=== PATIENT | male | born 2005 | race Caucasian/White ===

== ENCOUNTER 2025-07-29 17:09 | Inpatient (IN) | payer OTHER, SELFPAY ==
[2025-07-29 18:18] VITALS: BMI 31.9
[2025-07-29 18:19] VITALS: BP 136/80; PULSE 88; RESP 14; TEMP 37.1; O2SAT 98
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
[2025-07-29 20:00] VITALS: BP 138/79; PULSE 88; RESP 16; TEMP 36.5; O2SAT 98
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
[2025-07-30 08:00] VITALS: BP 136/93; PULSE 78; RESP 20; TEMP 36.3; O2SAT 99
[2025-07-30 08:37] LABS: Alanine Aminotransferase 26 U/L (0-40); Albumin Level 4.7 g/dL (3.5-5.0); Alkaline Phosphatase 107 U/L (39-117); Anion Gap 12 (12-20); Aspartate Amino Transferase 22 U/L (5-37); Blood Urea Nitrogen 22 mg/dL (9-16); Calcium 9.6 mg/dL (8.4-10.2); Carbon Dioxide 26 mmol/L (22-29); Chloride 105 mmol/L (96-108); Cholesterol 154 mg/dL (<200); Creatinine Clr Calc Pharmacy 146.1; Estimated Glomerular Filt Rate > 60; HDL Cholesterol 43 mg/dL (>40); Magnesium 2.1 mg/dL (1.6-2.6); Potassium 4.3 mmol/L (3.3-5.1); Sodium 139 mmol/L (135-145); Total Protein 7.3 g/dL (6.5-8.0); Triglycerides 74 mg/dL (<150)
[2025-07-30 08:51] LABS: Free T4 (Free Thyroxine) 1.04 ng/dL (0.71-1.85); Thyroid Stimulating Hormone 1.05 uIU/mL (0.32-4.0)
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
[2025-07-30 09:03] LABS: Folate 6.0 ng/mL (> or = 4.0); Vitamin B12 474 pg/mL (200-900)
--- NOTE | 2025-07-30 09:05 | P.PNPSI_ITS ---
Subjective Subjective Date of Service: 07/30/25 Reason For Visit: unspecified trauma Subjective Notes: Conditional Voluntary Interim History: Active on unit. keeping to self. attending some groups. Patient reports feeling okay today; appears anxious; patient stated, I was video chatting online with someone everyday. She started asking for money and when I stopped sending her money she wouldn't respond. I broke up with her and it affected me so much where I would cry for no reason. There are nights I can't sleep because I'm thinking of her. I thought about taking my life because I didn't think people would miss me, until I got into the ambulance and I got so many messages saying people were proud of me for getting help. I didn't know so many people cared about me . Patient reports he is no longer feeling suicidal because it makes him feel happy and supported to know numerous people were asking about his well-being. denies history of SA/SIB. He currently denies SI/HI/VH/AH. Patient reports he would like a referral to outpatient psychaitric providers and is agreeable to starting Zoloft. Medication Compliance: Yes Side effects from medications: No Attending Groups: Yes Mental Status Exam Mental Status Exam Narrative: Pt is alert and oriented; behavior is cooperative and calm; dressed in casual attire; mood is described as okay ; eye contact appropriate; Speech is normal rate, low volume and not pressured; thought process is organized; Thought content is on tx; denies SI/HI/VH/AH. Diagnostics Vital Signs (24Hr): Vital Signs - 24 hr 07/29/25 18:19 07/29/25 20:00 07/30/25 08:00 Temperature 98.8 F 97.7 F 97.4 F Pulse Rate 88 88 78 Respiratory Rate 14 16 20 Blood Pressure 136/80 138/79 136/93 H Pulse Oximetry 98 98 99 Oxygen Delivery Method Room Air Room Air Room Air BMI result Body Mass Index 31.9 Labs 07/30/25 07:36 Labs: Laboratory Results - last 48 hr 07/30/25 07:36 Sodium 139 Potassium 4.3 Chloride 105 Carbon Dioxide 26 Anion Gap 12 BUN 22 H Creatinine 0.91 Estim Creat Clear Calc 146.1 Estimated GFR > 60 Random Glucose 93 Estimat Average Glucose 103 Hemoglobin A1c % 5.2 Calcium 9.6 Magnesium 2.1 Total Bilirubin 0.4 AST 22 ALT 26 Alkaline Phosphatase 107 Total Protein 7.3 Albumin 4.7 Triglycerides 74 Cholesterol 154 LDL Cholesterol, Calc 97 HDL Cholesterol 43 Vitamin B12 474 Folate 6.0 TSH 1.05 Free T4 1.04 Medications Medications Current Medications Acetaminophen (Acetaminophen 325 Mg Tablet) 650 mg PO Q6H PRN PRN Reason: Headache/Pain, Scale 1-10 Al Hydroxide/Mg Hydroxide (Magnesium Hydrox/Alum Hydrox 30 Ml Oral.Susp) 30 ml PO Q6H PRN PRN Reason: Heartburn/Nausea Hydroxyzine HCl (Hydroxyzine Hcl 25 Mg Tablet) 25 mg PO Q6H PRN PRN Reason: mild anxiety Magnesium Hydroxide (Milk Of Magnesia 30 Ml Oral.Susp) 30 ml PO DAILY PRN PRN Reason: Constipation Nicotine (Nicotine 21 Mg Patch.Td24) 21 mg TRANSDERMA DAILY PRN PRN Reason: nicotine craving Nicotine Polacrilex (Nicotine Polacrilex 2 Mg Gum) 2 mg BUCCAL Q2H PRN PRN Reason: Nicotine Cravings Olanzapine (Olanzapine 5 Mg Tablet) 5 mg PO BID PRN PRN Reason: agitation Trazodone HCl (Trazodone Hcl 50 Mg Tablet) 50 mg PO BEDTIME MRX1 PRN PRN Reason: Insomnia Last Admin: 07/29/25 21:57 Dose: 50 mg Allergies Allergies Allergy/AdvReac Type Severity Reaction Status Date / Time No Known Allergies Allergy Verified 07/29/25 17:20 Assessment & Plan Assessment & Plan (1) MDD (major depressive disorder), single episode: Status: Acute Code(s): F32.9 - Major depressive disorder, single episode, unspecified (2) PTSD (post-traumatic stress disorder): Status: Acute Code(s): F43.10 - Post-traumatic stress disorder, unspecified Plan Patient is an 19 years old [place], single male speaking with no prior medical or psychiatric history who self presented to the ED at [facility] secondary to depressive symptoms and suicidal ideation. Symptoms increased after Thanksgiving, recently moved out due to unhealthy relationship with dad, increased suicidal thoughts, anxiety, and depression in the past couple of days which affect his performance at work. Formulation/clinical reasoning: Increase SI, depression, and anxiety. Transition from adolescent to young adult life with recently moved away from home due to unhealthy relationship with dad. No prior psychiatric treatment. Not currently taking medication. No outpatient psychiatry services or therapist. Limited community support. Given the above information, patient would benefit in restrictive environment for safety, diagnostic, medication management, and learning some coping skills in therapeutic environment. Patient needs outpatient psychiatry outpatient services and therapist for aftercare. Plan: Patient on 15 minute checks for safety. Admitted to M5. CV. Work with treatment team to do collateral Contact the hospitalist regarding hospitalist consultation on admission: pending Diagnostic and discharge planning. Start sertraline 25 mg daily in the morning. Handout given to patient regarding medication, indications, possible side effects reviewed with patient. Also review PRNs available with patient for anxiety and insomnia. 07/30: Active on unit. keeping to self. attending some groups. Patient reports feeling okay today; patient stated, I was video chatting online with someone everyday. She started asking for money and when I stopped sending her money she wouldn't respond. I broke up with her and it affected me so much where I would cry for no reason. There are nights I can't sleep because I'm thinking of her. I thought about taking my life because I didn't think people would miss me, until I got into the ambulance and I got so many messages saying people were proud of me for getting help. I didn't know so many people cared about me . Patient reports he is no longer feeling suicidal because it makes him feel happy and supported to know numerous people were asking about his well-being. denies history of SA/SIB. He currently denies SI/HI/VH/AH. Patient reports he would like a referral to outpatient psychiatric providers and is agreeable to starting Zoloft. Patient educated on: diagnosis, medication risk/benefits and therapeutic strategies Reason for continued inpatient stay Substantial Risk for: med/psych decompensation Time Spent With Patient Time: Total time managing care of this patient today _20___ minutes.
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
[2025-07-30] MEDS: Flu Vacc TS2025-26(6mo up)/PF 0.5 ML SYRINGE IM (10:02)
[2025-07-30 21:51] VITALS: BP 115/63; PULSE 68; RESP 14; TEMP 36.7; O2SAT 97
[2025-07-31 07:00] VITALS: BMI 32.4
[2025-07-31 08:40] VITALS: BP 121/60; PULSE 74; RESP 16; TEMP 36.7; O2SAT 98
--- NOTE | 2025-07-31 10:56 | HO.PSYCHPN ---
Subjective Subjective Date of Service: 07/31/25 Reason For Visit: unspecified trauma Subjective Notes: Conditional Voluntary Interim History: Active on unit. keeping to self. attending groups. Patient reports feeling a little better today; future oriented. Patient reports he applied to multiple jobs prior to coming to the hospital and is hoping to hear back. He is also focused on obtaining his learner's permit. Patient reports he plans on attending all groups today. denies any side effects from mediation. denies SI/HI/VH/AH. Continue tx plan. Medication Compliance: Yes Side effects from medications: No Attending Groups: Yes Mental Status Exam Mental Status Exam Narrative: Pt is alert and oriented; behavior is cooperative and calm; dressed in casual attire; mood is described as okay ; eye contact appropriate; Speech is normal rate, low volume and not pressured; thought process is organized; Thought content is on tx/discharge; denies SI/HI/VH/AH. Diagnostics Vital Signs (24Hr): Vital Signs - 24 hr 07/30/25 21:51 07/31/25 08:40 Temperature 98.1 F 98.1 F Pulse Rate 68 74 Respiratory Rate 14 16 Blood Pressure 115/63 121/60 Pulse Oximetry 97 98 Oxygen Delivery Method Room Air Room Air BMI result Body Mass Index 31.9 Labs 07/30/25 07:36 Labs: Laboratory Results - last 48 hr 07/30/25 07:36 Sodium 139 Potassium 4.3 Chloride 105 Carbon Dioxide 26 Anion Gap 12 BUN 22 H Creatinine 0.91 Estim Creat Clear Calc 146.1 Estimated GFR > 60 Random Glucose 93 Estimat Average Glucose 103 Hemoglobin A1c % 5.2 Calcium 9.6 Magnesium 2.1 Total Bilirubin 0.4 AST 22 ALT 26 Alkaline Phosphatase 107 Total Protein 7.3 Albumin 4.7 Triglycerides 74 Cholesterol 154 LDL Cholesterol, Calc 97 HDL Cholesterol 43 Vitamin B12 474 Folate 6.0 TSH 1.05 Free T4 1.04 Medications Medications Current Medications Acetaminophen (Acetaminophen 325 Mg Tablet) 650 mg PO Q6H PRN PRN Reason: Headache/Pain, Scale 1-10 Al Hydroxide/Mg Hydroxide (Magnesium Hydrox/Alum Hydrox 30 Ml Oral.Susp) 30 ml PO Q6H PRN PRN Reason: Heartburn/Nausea Hydroxyzine HCl (Hydroxyzine Hcl 25 Mg Tablet) 25 mg PO Q6H PRN PRN Reason: mild anxiety Magnesium Hydroxide (Milk Of Magnesia 30 Ml Oral.Susp) 30 ml PO DAILY PRN PRN Reason: Constipation Sertraline HCl (Sertraline Hcl 25 Mg Tablet) 25 mg PO DAILY [facility] Last Admin: 07/31/25 08:42 Dose: 25 mg Trazodone HCl (Trazodone Hcl 50 Mg Tablet) 50 mg PO BEDTIME MRX1 PRN PRN Reason: Insomnia Last Admin: 07/29/25 21:57 Dose: 50 mg Allergies Allergies Allergy/AdvReac Type Severity Reaction Status Date / Time No Known Allergies Allergy Verified 07/29/25 17:20 Assessment & Plan Assessment & Plan (1) MDD (major depressive disorder), single episode: Status: Acute Code(s): F32.9 - Major depressive disorder, single episode, unspecified (2) PTSD (post-traumatic stress disorder): Status: Acute Code(s): F43.10 - Post-traumatic stress disorder, unspecified Plan Patient is an 19 years old Romanian, single male speaking with no prior medical or psychiatric history who self presented to the ED at [facility] secondary to depressive symptoms and suicidal ideation. Symptoms increased after Thanksgiving, recently moved out due to unhealthy relationship with dad, increased suicidal thoughts, anxiety, and depression in the past couple of days which affect his performance at work. Formulation/clinical reasoning: Increase SI, depression, and anxiety. Transition from adolescent to young adult life with recently moved away from home due to unhealthy relationship with dad. No prior psychiatric treatment. Not currently taking medication. No outpatient psychiatry services or therapist. Limited community support. Given the above information, patient would benefit in restrictive environment for safety, diagnostic, medication management, and learning some coping skills in therapeutic environment. Patient needs outpatient psychiatry outpatient services and therapist for aftercare. Plan: Patient on 15 minute checks for safety. Admitted to . CV. Work with treatment team to do collateral Contact the hospitalist regarding hospitalist consultation on admission: pending Diagnostic and discharge planning. Start sertraline 25 mg daily in the morning. Handout given to patient regarding medication, indications, possible side effects reviewed with patient. Also review PRNs available with patient for anxiety and insomnia. 07/30: Active on unit. keeping to self. attending some groups. Patient reports feeling okay today; patient stated, I was video chatting online with someone everyday. She started asking for money and when I stopped sending her money she wouldn't respond. I broke up with her and it affected me so much where I would cry for no reason. There are nights I can't sleep because I'm thinking of her. I thought about taking my life because I didn't think people would miss me, until I got into the ambulance and I got so many messages saying people were proud of me for getting help. I didn't know so many people cared about me . Patient reports he is no longer feeling suicidal because it makes him feel happy and supported to know numerous people were asking about his well-being. denies history of SA/SIB. He currently denies SI/HI/VH/AH. Patient reports he would like a referral to outpatient psychiatric providers and is agreeable to starting Zoloft. 07/31: Active on unit. keeping to self. attending groups. Patient reports feeling a little better today; future oriented. Patient reports he applied to multiple jobs prior to coming to the hospital and is hoping to hear back. He is also focused on obtaining his learner's permit. Patient reports he plans on attending all groups today. denies any side effects from mediation. denies SI/HI/VH/AH. Continue tx plan. Patient educated on: diagnosis, medication risk/benefits and therapeutic strategies Reason for continued inpatient stay Substantial Risk for: med/psych decompensation Time Spent With Patient Time: Total time managing care of this patient today _20___ minutes.
[2025-07-31 20:00] VITALS: BP 135/61; PULSE 81; RESP 16; TEMP 36.3; O2SAT 97
[2025-08-01 08:00] VITALS: BP 133/79; PULSE 86; RESP 16; O2SAT 98
--- NOTE | 2025-08-01 11:43 | P.PNPSI_ITS ---
Subjective Subjective Date of Service: 08/01/25 Reason For Visit: unspecified trauma Subjective Notes: Conditional Voluntary Interim History: Active on unit. attending groups. social with peers. Patient reports feeling better than when I came in here ; Patient stated, Everything here is wonderful. I'm opening up more with people . He reports sleeping well. denies SI/HI/VH/AH. Plan to discharge Monday if continues to improve; pt aware. Continue tx plan. Medication Compliance: Yes Side effects from medications: No Attending Groups: Yes Mental Status Exam Mental Status Exam Narrative: Pt is alert and oriented; behavior is cooperative and calm; dressed in casual attire; mood is described as better ; eye contact appropriate; Speech is normal rate, low volume and not pressured; thought process is organized; Thought content is on tx/discharge; denies SI/HI/VH/AH. Diagnostics Vital Signs (24Hr): Vital Signs - 24 hr 07/31/25 20:00 08/01/25 08:00 Temperature 97.4 F Pulse Rate 81 86 Respiratory Rate 16 16 Blood Pressure 135/61 133/79 Pulse Oximetry 97 98 Oxygen Delivery Method Room Air Room Air BMI result Body Mass Index 32.4 Labs 07/30/25 07:36 Medications Medications Current Medications Acetaminophen (Acetaminophen 325 Mg Tablet) 650 mg PO Q6H PRN PRN Reason: Headache/Pain, Scale 1-10 Al Hydroxide/Mg Hydroxide (Magnesium Hydrox/Alum Hydrox 30 Ml Oral.Susp) 30 ml PO Q6H PRN PRN Reason: Heartburn/Nausea Hydroxyzine HCl (Hydroxyzine Hcl 25 Mg Tablet) 25 mg PO Q6H PRN PRN Reason: mild anxiety Magnesium Hydroxide (Milk Of Magnesia 30 Ml Oral.Susp) 30 ml PO DAILY PRN PRN Reason: Constipation Sertraline HCl (Sertraline Hcl 25 Mg Tablet) 25 mg PO DAILY [facility] Last Admin: 08/01/25 08:18 Dose: 25 mg Trazodone HCl (Trazodone Hcl 50 Mg Tablet) 50 mg PO BEDTIME MRX1 PRN PRN Reason: Insomnia Last Admin: 07/29/25 21:57 Dose: 50 mg Allergies Allergies Allergy/AdvReac Type Severity Reaction Status Date / Time No Known Allergies Allergy Verified 07/29/25 17:20 Assessment & Plan Assessment & Plan (1) MDD (major depressive disorder), single episode: Status: Acute Code(s): F32.9 - Major depressive disorder, single episode, unspecified (2) PTSD (post-traumatic stress disorder): Status: Acute Code(s): F43.10 - Post-traumatic stress disorder, unspecified Plan Patient is an 19 years old Lithuanian, single male speaking with no prior medical or psychiatric history who self presented to the ED at [facility] secondary to depressive symptoms and suicidal ideation. Symptoms increased after Thanksgiving, recently moved out due to unhealthy relationship with dad, increased suicidal thoughts, anxiety, and depression in the past couple of days which affect his performance at work. Formulation/clinical reasoning: Increase SI, depression, and anxiety. Transition from adolescent to young adult life with recently moved away from home due to unhealthy relationship with dad. No prior psychiatric treatment. Not currently taking medication. No outpatient psychiatry services or therapist. Limited community support. Given the above information, patient would benefit in restrictive environment for safety, diagnostic, medication management, and learning some coping skills in therapeutic environment. Patient needs outpatient psychiatry outpatient services and therapist for aftercare. Plan: Patient on 15 minute checks for safety. Admitted to . CV. Work with treatment team to do collateral Contact the hospitalist regarding hospitalist consultation on admission: pending Diagnostic and discharge planning. Start sertraline 25 mg daily in the morning. Handout given to patient regarding medication, indications, possible side effects reviewed with patient. Also review PRNs available with patient for anxiety and insomnia. 07/30: Active on unit. keeping to self. attending some groups. Patient reports feeling okay today; patient stated, I was video chatting online with someone everyday. She started asking for money and when I stopped sending her money she wouldn't respond. I broke up with her and it affected me so much where I would cry for no reason. There are nights I can't sleep because I'm thinking of her. I thought about taking my life because I didn't think people would miss me, until I got into the ambulance and I got so many messages saying people were proud of me for getting help. I didn't know so many people cared about me . Patient reports he is no longer feeling suicidal because it makes him feel happy and supported to know numerous people were asking about his well-being. denies history of SA/SIB. He currently denies SI/HI/VH/AH. Patient reports he would like a referral to outpatient psychiatric providers and is agreeable to starting Zoloft. 07/31: Active on unit. keeping to self. attending groups. Patient reports feeling a little better today; future oriented. Patient reports he applied to multiple jobs prior to coming to the hospital and is hoping to hear back. He is also focused on obtaining his learner's permit. Patient reports he plans on attending all groups today. denies any side effects from mediation. denies SI/HI/VH/AH. Continue tx plan. 08/01: Active on unit. attending groups. social with peers. Patient reports feeling better than when I came in here ; Patient stated, Everything here is wonderful. I'm opening up more with people . He reports sleeping well. denies SI/HI/VH/AH. Plan to discharge Monday if continues to improve; pt aware. Continue tx plan. Patient educated on: diagnosis, medication risk/benefits and therapeutic strategies Reason for continued inpatient stay Substantial Risk for: med/psych decompensation Time Spent With Patient Time: Total time managing care of this patient today _20___ minutes.
[2025-08-01 20:00] VITALS: BP 144/69; PULSE 88; RESP 16; TEMP 36.7; O2SAT 97
[2025-08-02 08:00] VITALS: BP 128/75; PULSE 81; RESP 16; TEMP 36.6; O2SAT 97
--- NOTE | 2025-08-02 13:08 | HO.PSYCHPN ---
Subjective Subjective Date of Service: 08/02/25 Reason For Visit: unspecified trauma Subjective Notes: Conditional Voluntary Interim History: Active on unit. attending groups. social with peers. Patient reports feeling good today; he reports his sleep was wonderful . denies any side effects from medications. He is looking forward to discharge on Monday. denies SI/HI/VH/AH. Continue tx plan. Medication Compliance: Yes Side effects from medications: No Attending Groups: Yes Mental Status Exam Mental Status Exam Narrative: Pt is alert and oriented; behavior is cooperative and calm; dressed in casual attire; mood is described as good ; eye contact appropriate; Speech is normal rate, low volume and not pressured; thought process is organized; Thought content is on tx/discharge; denies SI/HI/VH/AH. Diagnostics Vital Signs (24Hr): Vital Signs - 24 hr 08/01/25 20:00 08/02/25 08:00 Temperature 98.1 F 98 F Pulse Rate 88 81 Respiratory Rate 16 16 Blood Pressure 144/69 H 128/75 Pulse Oximetry 97 97 Oxygen Delivery Method Room Air Room Air BMI result Body Mass Index 32.4 Labs 07/30/25 07:36 Medications Medications Current Medications Acetaminophen (Acetaminophen 325 Mg Tablet) 650 mg PO Q6H PRN PRN Reason: Headache/Pain, Scale 1-10 Al Hydroxide/Mg Hydroxide (Magnesium Hydrox/Alum Hydrox 30 Ml Oral.Susp) 30 ml PO Q6H PRN PRN Reason: Heartburn/Nausea Hydroxyzine HCl (Hydroxyzine Hcl 25 Mg Tablet) 25 mg PO Q6H PRN PRN Reason: mild anxiety Magnesium Hydroxide (Milk Of Magnesia 30 Ml Oral.Susp) 30 ml PO DAILY PRN PRN Reason: Constipation Sertraline HCl (Sertraline Hcl 25 Mg Tablet) 25 mg PO DAILY [facility] Last Admin: 08/02/25 09:09 Dose: 25 mg Trazodone HCl (Trazodone Hcl 50 Mg Tablet) 50 mg PO BEDTIME MRX1 PRN PRN Reason: Insomnia Last Admin: 07/29/25 21:57 Dose: 50 mg Allergies Allergies Allergy/AdvReac Type Severity Reaction Status Date / Time No Known Allergies Allergy Verified 07/29/25 17:20 Assessment & Plan Assessment & Plan (1) MDD (major depressive disorder), single episode: Status: Acute Code(s): F32.9 - Major depressive disorder, single episode, unspecified (2) PTSD (post-traumatic stress disorder): Status: Acute Code(s): F43.10 - Post-traumatic stress disorder, unspecified Plan Patient is an 19 years old Peruvian, single male speaking with no prior medical or psychiatric history who self presented to the ED at [facility] secondary to depressive symptoms and suicidal ideation. Symptoms increased after Thanksgiving, recently moved out due to unhealthy relationship with dad, increased suicidal thoughts, anxiety, and depression in the past couple of days which affect his performance at work. Formulation/clinical reasoning: Increase SI, depression, and anxiety. Transition from adolescent to young adult life with recently moved away from home due to unhealthy relationship with dad. No prior psychiatric treatment. Not currently taking medication. No outpatient psychiatry services or therapist. Limited community support. Given the above information, patient would benefit in restrictive environment for safety, diagnostic, medication management, and learning some coping skills in therapeutic environment. Patient needs outpatient psychiatry outpatient services and therapist for aftercare. Plan: Patient on 15 minute checks for safety. Admitted to . CV. Work with treatment team to do collateral Contact the hospitalist regarding hospitalist consultation on admission: pending Diagnostic and discharge planning. Start sertraline 25 mg daily in the morning. Handout given to patient regarding medication, indications, possible side effects reviewed with patient. Also review PRNs available with patient for anxiety and insomnia. 07/30: Active on unit. keeping to self. attending some groups. Patient reports feeling okay today; patient stated, I was video chatting online with someone everyday. She started asking for money and when I stopped sending her money she wouldn't respond. I broke up with her and it affected me so much where I would cry for no reason. There are nights I can't sleep because I'm thinking of her. I thought about taking my life because I didn't think people would miss me, until I got into the ambulance and I got so many messages saying people were proud of me for getting help. I didn't know so many people cared about me . Patient reports he is no longer feeling suicidal because it makes him feel happy and supported to know numerous people were asking about his well-being. denies history of SA/SIB. He currently denies SI/HI/VH/AH. Patient reports he would like a referral to outpatient psychiatric providers and is agreeable to starting Zoloft. 12/18: Active on unit. keeping to self. attending groups. Patient reports feeling a little better today; future oriented. Patient reports he applied to multiple jobs prior to coming to the hospital and is hoping to hear back. He is also focused on obtaining his learner's permit. Patient reports he plans on attending all groups today. denies any side effects from mediation. denies SI/HI/VH/AH. Continue tx plan. 08/01: Active on unit. attending groups. social with peers. Patient reports feeling better than when I came in here ; Patient stated, Everything here is wonderful. I'm opening up more with people . He reports sleeping well. denies SI/HI/VH/AH. Plan to discharge Monday if continues to improve; pt aware. Continue tx plan. 08/02: Active on unit. attending groups. social with peers. Patient reports feeling good today; he reports his sleep was wonderful . denies any side effects from medications. He is looking forward to discharge on Monday. denies SI/HI/VH/AH. Continue tx plan. Patient educated on: diagnosis, medication risk/benefits and therapeutic strategies Reason for continued inpatient stay Substantial Risk for: med/psych decompensation Time Spent With Patient Time: Total time managing care of this patient today _20___ minutes.
[2025-08-02 19:15] VITALS: BP 143/84; PULSE 96; RESP 17; TEMP 36.7; O2SAT 99
[2025-08-03 08:00] VITALS: BP 129/71; PULSE 85; RESP 18; O2SAT 98
--- NOTE | 2025-08-03 12:19 | HO.PSYCHPN ---
Subjective Subjective Date of Service: 08/03/25 Reason For Visit: unspecified trauma Subjective Notes: Conditional Voluntary Interim History: Active on unit. attending groups. social with peers. Patient reports feeling good today; patient reports he is looking forward to leaving tomorrow. future oriented. denies SI/HI/VH/AH. Patient reports he plans on following up with outpatient providers. Medication Compliance: Yes Side effects from medications: No Attending Groups: Yes Mental Status Exam Mental Status Exam Narrative: Pt is alert and oriented; behavior is cooperative and calm; dressed in casual attire; mood is described as good ; eye contact appropriate; Speech is normal rate, low volume and not pressured; thought process is organized; Thought content is on discharge; denies SI/HI/VH/AH. Diagnostics Vital Signs (24Hr): Vital Signs - 24 hr 08/02/25 19:15 08/03/25 08:00 Temperature 98.0 F Pulse Rate 96 85 Respiratory Rate 17 18 Blood Pressure 143/84 H 129/71 Pulse Oximetry 99 98 Oxygen Delivery Method Room Air Room Air BMI result Body Mass Index 32.4 Labs 07/30/25 07:36 Medications Medications Current Medications Acetaminophen (Acetaminophen 325 Mg Tablet) 650 mg PO Q6H PRN PRN Reason: Headache/Pain, Scale 1-10 Al Hydroxide/Mg Hydroxide (Magnesium Hydrox/Alum Hydrox 30 Ml Oral.Susp) 30 ml PO Q6H PRN PRN Reason: Heartburn/Nausea Hydroxyzine HCl (Hydroxyzine Hcl 25 Mg Tablet) 25 mg PO Q6H PRN PRN Reason: mild anxiety Magnesium Hydroxide (Milk Of Magnesia 30 Ml Oral.Susp) 30 ml PO DAILY PRN PRN Reason: Constipation Sertraline HCl (Sertraline Hcl 25 Mg Tablet) 25 mg PO DAILY [facility] Last Admin: 08/03/25 08:35 Dose: 25 mg Trazodone HCl (Trazodone Hcl 50 Mg Tablet) 50 mg PO BEDTIME MRX1 PRN PRN Reason: Insomnia Last Admin: 07/29/25 21:57 Dose: 50 mg Allergies Allergies Allergy/AdvReac Type Severity Reaction Status Date / Time No Known Allergies Allergy Verified 07/29/25 17:20 Assessment & Plan Assessment & Plan (1) MDD (major depressive disorder), single episode: Status: Acute Code(s): F32.9 - Major depressive disorder, single episode, unspecified (2) PTSD (post-traumatic stress disorder): Status: Acute Code(s): F43.10 - Post-traumatic stress disorder, unspecified Plan Patient is an 19 years old Portuguese, single male speaking with no prior medical or psychiatric history who self presented to the ED at [facility] secondary to depressive symptoms and suicidal ideation. Symptoms increased after Thanksgiving, recently moved out due to unhealthy relationship with dad, increased suicidal thoughts, anxiety, and depression in the past couple of days which affect his performance at work. Formulation/clinical reasoning: Increase SI, depression, and anxiety. Transition from adolescent to young adult life with recently moved away from home due to unhealthy relationship with dad. No prior psychiatric treatment. Not currently taking medication. No outpatient psychiatry services or therapist. Limited community support. Given the above information, patient would benefit in restrictive environment for safety, diagnostic, medication management, and learning some coping skills in therapeutic environment. Patient needs outpatient psychiatry outpatient services and therapist for aftercare. Plan: Patient on 15 minute checks for safety. Admitted to . CV. Work with treatment team to do collateral Contact the hospitalist regarding hospitalist consultation on admission: pending Diagnostic and discharge planning. Start sertraline 25 mg daily in the morning. Handout given to patient regarding medication, indications, possible side effects reviewed with patient. Also review PRNs available with patient for anxiety and insomnia. 07/30: Active on unit. keeping to self. attending some groups. Patient reports feeling okay today; patient stated, I was video chatting online with someone everyday. She started asking for money and when I stopped sending her money she wouldn't respond. I broke up with her and it affected me so much where I would cry for no reason. There are nights I can't sleep because I'm thinking of her. I thought about taking my life because I didn't think people would miss me, until I got into the ambulance and I got so many messages saying people were proud of me for getting help. I didn't know so many people cared about me . Patient reports he is no longer feeling suicidal because it makes him feel happy and supported to know numerous people were asking about his well-being. denies history of SA/SIB. He currently denies SI/HI/VH/AH. Patient reports he would like a referral to outpatient psychiatric providers and is agreeable to starting Zoloft. 07/31: Active on unit. keeping to self. attending groups. Patient reports feeling a little better today; future oriented. Patient reports he applied to multiple jobs prior to coming to the hospital and is hoping to hear back. He is also focused on obtaining his learner's permit. Patient reports he plans on attending all groups today. denies any side effects from mediation. denies SI/HI/VH/AH. Continue tx plan. 08/01: Active on unit. attending groups. social with peers. Patient reports feeling better than when I came in here ; Patient stated, Everything here is wonderful. I'm opening up more with people . He reports sleeping well. denies SI/HI/VH/AH. Plan to discharge Monday if continues to improve; pt aware. Continue tx plan. 08/02: Active on unit. attending groups. social with peers. Patient reports feeling good today; he reports his sleep was wonderful . denies any side effects from medications. He is looking forward to discharge on Monday. denies SI/HI/VH/AH. Continue tx plan. 08/03: Active on unit. attending groups. social with peers. Patient reports feeling good today; patient reports he is looking forward to leaving tomorrow. future oriented. denies SI/HI/VH/AH. Patient reports he plans on following up with outpatient providers. Patient educated on: diagnosis and medication risk/benefits Reason for continued inpatient stay Substantial Risk for: stable for discharge Time Spent With Patient Time: Total time managing care of this patient today _20___ minutes.
[2025-08-03 20:00] VITALS: BP 146/83; PULSE 98; RESP 16; TEMP 36.7; O2SAT 98
[2025-08-04 08:00] VITALS: BP 130/72; PULSE 87; RESP 20; TEMP 36.7; O2SAT 97
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
== END 2025-08-04 12:15 | disposition home or self-care (01) | DRG 754 ==
PROVIDERS: Nurse Practitioner Psychiatric/Mental Health; Admitting Provider Psychiatry & Neurology Psychiatry; PCP Physician Assistant Medical; Responsible Provider Registered Nurse; Visit Provider Psychiatry & Neurology Psychiatry
DX: F32.9 Major depressive disorder, single episode, unspecified (principal); R45.851 Suicidal ideations; F43.10 Post-traumatic stress disorder, unspecified; Z23 Encounter for immunization; Z79.899 Other long term (current) drug therapy
CPT/HCPCS: 36415; 80053; 80061; 82607; 82746; 83036; 83735; 84439; 84443; 90656

== ENCOUNTER → 2025-07-29 17:09 | Outpatient (BNV) | payer OTHER, SELFPAY | PROVIDERS: Admitting Provider Psychiatry & Neurology Psychiatry; PCP Physician Assistant Medical; Responsible Provider Registered Nurse; Visit Provider Nurse Practitioner Psychiatric/Mental Health | DX: F32.9 Major depressive disorder, single episode, unspecified (principal); F43.10 Post-traumatic stress disorder, unspecified | CPT/HCPCS: 99231; 99232; 99233 ==

== ENCOUNTER → 2025-07-29 17:09 | Outpatient (BNV) | payer OTHER, SELFPAY | PROVIDERS: Admitting Provider Psychiatry & Neurology Psychiatry; PCP Physician Assistant Medical; Responsible Provider Registered Nurse; Visit Provider Nurse Practitioner Family | DX: Z02.2 Encounter for examination for admission to residential institution (principal) | CPT/HCPCS: 99499 ==